=== PATIENT | male | born 1940 | race Caucasian/White ===

== ENCOUNTER 2019-06-19 08:47 | Inpatient (IN) ==
[2019-06-19 10:05] LABS: Appearance Urine Clear (Clear); Bacteria Urine Automated Negative (Negative); Bilirubin Urine Negative (Negative); Blood Urine Negative (Negative); Color Urine Yellow; Glucose Urine UA Negative (Negative); Ketones Urine Negative (Negative); Leukocyte Esterase Urine 1+ (Negative); Nitrite Urine Negative (Negative); Protein Urine Negative (Negative); RBC Urine Automated 0-4 /hpf (0-4); Specific Gravity Urine 1.016 (1.000-1.030); Urobilinogen Urine Negative (Negative)
[2019-06-19 10:18] LABS: Basophils # (auto) 0.03 K/uL (0-0.2); Basophils % (auto) 0.3 %; Eosinophils # (auto) 0.14 K/uL (0-0.5); Eosinophils % (auto) 1.5 %; Hematocrit (blood only) 34.3 % (42-52); Hemoglobin 11.5 g/dL (14.0-18.0); Immature Granulocytes # (auto) 0.06 K/uL (0.00-0.02); Immature Granulocytes % (auto) 0.7 %; Lymphocytes # (auto) 0.82 K/uL (1.2-3.4); Mean Corpuscular Hemoglobin 30.5 pg (25-34); Mean Corpuscular Hgb Conc 33.5 g/dL (32-36); Mean Platelet Volume 7.9 fL (7.4-10.4); Monocytes # (auto) 1.65 K/uL (0.11-0.59); Neutrophils # (auto) 6.46 K/uL (1.4-6.5); Neutrophils % (auto) 70.5 %; Platelet Count 340 K/uL (130-400); RDW Coefficient of Variation 13.3 % (11.5-14.5); RDW Standard Deviation 44.5 fL (36.4-46.3); Red Blood Count 3.77 M/uL (4.7-6.1); White Blood Count 9.16 K/uL (4.8-10.8)
[2019-06-19 11:05] LABS: Albumin Globulin Ratio 0.8 (0.9-2); Albumin Level 2.6 gm/dl (3.4-5.0); BUN Creatinine Ratio 12.3 (10-20); Bilirubin,Total 0.3 mg/dl (0.2-1); Calcium 9.6 mg/dl (8.5-10.1); Creatinine Clr Calc Pharmacy 9.3 ml/min; Globulin 3.4 gm/dl (2.5-4.0); Potassium 5.6 mmol/L (3.5-5.1)
[2019-06-19] MEDS ORDERED: SODIUM CHLORIDE 0.9% 1000ML 1,000 ML IV SCH (11:15)
--- NOTE | 2019-06-19 11:17 | Ultrasound Report ---
ULTRASOUND KIDNEYS AND BLADDER CLINICAL HISTORY: Urinary retention. COMPARISON STUDY: No priors. TECHNIQUE: Real-time, grayscale, and color flow sonography of the kidneys and bladder is performed. I mages are reviewed in the transverse and longitudinal planes. FINDINGS: Kidneys: The kidneys demonstrate cortical atrophy and are normal in echotexture. The right kidney edita sures 13.8 cm in length and the left kidney measures 14.2 cm in length. There is mild to moderate raul ateral hydroureteronephrosis. No shadowing renal calculi are identified. There is no sonographic evid ence of contour deforming renal mass lesion. No perinephric fluid is identified. Bladder: The bladder is decompressed and a Borrego catheter and could not be assessed. IMPRESSION: 1. The kidneys demonstrate cortical atrophy. 2. There is mild to moderate bilateral hydroureteronephrosis. 3. The bladder is decompressed around a Borrego catheter and could not be assessed. Electronically signed by: Kendall Hamilton M.D. 06/19/2019 11:15 AM
--- NOTE | 2019-06-19 12:16 | History & Physical Report ---
Date of Service June 19, 2019 Assessment & Plan (1) ANDREAS (acute kidney injury): Secondary to post renal obstruction. Consult nephrology. Add gentle IV fluids (2) Urinary retention: Borrego catheter inserted. Consult urology. (3) Bilateral hydronephrosis: Probably secondary to urinary retention. Add Flomax. (4) Hematuria: Further plan per urologist. Monitor labs and transfuse accordingly. Check UA/urine cultures. We will repeat labs in a.m. Add SCDs for DVT prophylaxis History of Present Illness Chief Complaint: Urinary retention Primary Care Provider: Jon Basurto The patient is 78 years old male who presented to the emergency room with complaints of urinary retention. Patient states that he is having decreased amount of urine for last 4 days. He denies any abdominal pain. No nausea vomi ting. In the emergency room Borrego catheter was inserted and around 2 L of urine obtained. Borrego's catheter also showed hematuria. The further work-up done in the ER shows that patient has bilateral hydronephrosis. He will be admitted for further evaluation and management. Blood labs show acute renal failure. Allergies Allergy/AdvReac Type Severity Reaction Status Date / Time minocycline Allergy Severe SEVERE LEG Unverified 06/19/19 09:18 RASH ketorolac [From Toradol] Allergy Mild GI ISSUES? Unverified 06/19/19 09:18 Home Medications Home Medications Medication Instructions Recorded Confirmed Type cholecalciferol (vitamin D3) 1,000 unit PO DAILY 06/19/19 06/19/19 History [Vitamin D3] vit C,O-Eu-nfjlm-lutein-zeaxan 1 tab PO AMHS 06/19/19 06/19/19 History [PreserVision AREDS-2] Past Med/Surg History Medical History No significant past medical history Family History Other Family history non-contributory Social History marital status: Current Living Situation: Spouse current occupational status: retired Feels Safe at Home: Yes Smoking Status: Former smoker Review of Systems Review of Systems: All systems reviewed & are unremarkable except as noted in HPI & below Physical Exam Physical Exam: GENERAL : No acute distress EYES: No icterus, gaze conjugate NOSE: No evidence of epistaxis MOUTH: No lesions or candidiasis, mucosa moist NECK: Supple LUNGS: CTA B/L, no wheezes, rales or rhonchi HEART: Regular, rate controlled ABDOMEN: Soft, NT, ND, BS Present EXTREMITIES: No LE edema, pedal pulses intact NEURO: A&OX3 Hematuria noted in the Borrego catheter Results & Data Vital Signs (Past 12 Hours) Vital Signs Temp Pulse Pulse Resp BP BP Pulse Ox 06/19/19 10:18 74 16 167/77 H 99 06/19/19 08:52 97.5 F L 90 20 180/83 H 96 Laboratory Results 06/19/19 10:09 06/19/19 10:09 Diagnostic Findings ULTRASOUND KIDNEYS AND BLADDER CLINICAL HISTORY: Urinary retention. COMPARISON STUDY: No priors. TECHNIQUE: Real-time, grayscale, and color flow sonography of the kidneys and bladder is performed. Images are reviewed in the transverse and longitudinal planes. FINDINGS: Kidneys: The kidneys demonstrate cortical atrophy and are normal in echotexture. The right kidney measures 13.8 cm in length and the left kidney measures 14.2 cm in length. There is mild to moderate bilateral hydroureteronephrosis. No shadowing renal calculi are identified. There is no sonographic evidence of contour deforming renal mass lesion. No perinephric fluid is identified. Bladder: The bladder is decompressed and a Borrego catheter and could not be assessed. IMPRESSION: 1. The kidneys demonstrate cortical atrophy. 2. There is mild to moderate bilateral hydroureteronephrosis. 3. The bladder is decompressed around a Borrego catheter and could not be assessed. Code Status & VTE Plan Code Status Full code VTE Prophylaxis Plan VTE Prophylaxis will be ordered: Yes PG Care Time/CCT Total # of Minutes Spent Total Time Spent with Patient: Total time spent is greater than 50% in coordination of care (as documented) at patient's floor/unit and/or counseling patient: 60 m
[2019-06-19] MEDS ORDERED: ACETAMINOPHEN 325 MG TAB PO PRN (13:03)
[2019-06-19] MEDS ORDERED: ZOLPIDEM TARTRATE 5 MG TAB PO PRN (13:03)
[2019-06-19] MEDS ORDERED: ONDANSETRON INJ 2 MG/ML 2 ML VIAL IV PRN (13:03)
[2019-06-19] MEDS ORDERED: POLYETHYLENE (MIRALAX) 17 GM PACK PO PRN (13:03)
[2019-06-19] MEDS ORDERED: ALUMINUM/MAGNESIUM SUSP 30 ML UDC PO PRN (13:03)
[2019-06-19] MEDS ORDERED: MAGNESIUM HYDROXIDE SUSP 30 ML UDC PO PRN (13:03)
[2019-06-19] MEDS: SODIUM CHLORIDE 0.9% 1000ML 1,000 ML IV SCH ×2 (13:20→21:38)
--- NOTE | 2019-06-19 14:39 | Emergency Department Note ---
Entered by Malini Ocasio acting as a scribe for Claudia Rutherford MD History of Present Illness General Chief complaint: Unable to Void Stated complaint: TROUBLE URINATING Source: patient and family () History of Present Illness Onset (ago): week(s) 2 Location: pelvis Pain Consistency: + other (persistent) Maximum Pain Intensity: 0 Quality: + other (inability to urinate) Associated symptoms: + denies other symptoms (abdominal pain, fever, vomiting, diarrhea, dysuria, changes in bowel movements, changes in fluid intake) and + other (lower abdominal pressure, pitting edema in bilateral lower extremities) The patient is a 78 year old male that is presenting to the Emergency Room with complaints of persistent inability to urinate for around 2 weeks. The patient reports that he is only able to urinate a small amount intermittently. He states that he has some lower abdominal pressure but denies any true abdominal pain. He denies any dysuria. He denies any prior past episodes. He notes that he is having normal bowel movements. He denies any fever, vomiting, or diarrhea. He denies any changes in fluid intake. The patient reports that he started having some pitting edema in his bilateral lower extremities that started last night. His notes that the patient has an appointment with his PCP, Dr. Basurto, in [place] tomorrow but states that she decided he should come to the hospital due to the new onset edema. The patient denies being followed by a urologist. Home Medications Home Medications Medication Instructions Recorded Confirmed Type cholecalciferol (vitamin D3) 1,000 unit PO DAILY 06/19/19 06/19/19 History [Vitamin D3] vit C,R-Nd-dcwxn-lutein-zeaxan 1 tab PO AMHS 06/19/19 06/19/19 History [PreserVision AREDS-2] Allergies Allergy/AdvReac Type Severity Reaction Status Date / Time minocycline Allergy Severe SEVERE LEG Unverified 06/19/19 09:18 RASH ketorolac [From Toradol] Allergy Mild GI ISSUES? Unverified 06/19/19 09:18 Past Med/Surg History Medical History No significant past medical history Family History Other Family history non-contributory Social History Preferred Language: [place] [employer] Required: No Beliefs That Will Affect Care: None marital status: Current Living Situation: Spouse current occupational status: retired Feels Safe at Home: Yes Smoking Status: Former smoker Hx Substance Use: No Review of Systems See HPI for pertinent positives & negatives. and A total of 10 systems reviewed and were otherwise negative Physical Exam Vital Signs Vital Signs - 24 hr 06/19/19 08:52 06/19/19 10:18 Temperature 36.4 C L Temperature Source Oral Sepsis Recent Fever Within 48 Hours No Sepsis Action Taken by Nursing No Action Required Pulse Rate 90 Pulse Rate [Finger] 74 Pulse Rhythm Regular Pulse Strength Normal Respiratory Rate 20 16 Respiratory Effort / Characteristics Non-Labored Spontaneous Respiratory Depth Normal Respiratory Pattern Regular Blood Pressure 180/83 H Blood Pressure [Right Arm] 167/77 H Blood Pressure Mean 115 Blood Pressure Mean [Right Arm] 107 Blood Pressure Position Sitting Pulse Oximetry 96 99 Oxygen Delivery Method Room Air Room Air Vital signs reviewed. General: Well-appearing male, in no significant distress. HEENT: No scleral icterus, PERRLA, neck supple. Atraumatic. Cardiovascular: Regular rate and rhythm, no extra sounds. Pulmonary: Clear to auscultation bilaterally, normal work of breathing. Abdomen: Soft, positive bowel sounds. Moderate distension of the lower abdomen without rebound or guarding. No specific tenderness. Musculoskeletal: Atraumatic, no peripheral edema. Neurologic: Patient awake alert and oriented x 3 Skin: Warm, dry, no rash Course 0912:The patient was evaluated in room B05. A complete history and physical examination was performed. 0937: 1000ccs of urine on bladder scan. 0950: 2700ccs of urine have been drained as of this time. 1105: I updated the patient on his current lab results. 1138: Upon reevaluation, the patient is resting comfortably. I discussed laboratory and radiographic results with the patient. He verbalized agreement of the treatment plan. The patient will be evaluated for further management and care. 1148: I discussed the patients case with Dr. Bosch, [facility], who will evaluate the patient for further management and care. Administered Medications Finasteride (Proscar) 5 mg PO QAM [facility] Stop: 07/21/19 08:59 Last Admin: 06/22/19 07:46 Dose: 5 mg Documented by: [id number] Admin: 06/21/19 07:50 Dose: 5 mg Documented by: [id number] Tamsulosin HCl (Flomax) 0.4 mg PO HS GREGG Stop: 07/19/19 20:59 Last Admin: 06/21/19 21:03 Dose: 0.4 mg Documented by: [id number] Admin: 06/20/19 20:15 Dose: 0.4 mg Documented by: [id number] Admin: 06/19/19 21:38 Dose: 0.4 mg Documented by: [id number] Discontinued Medications Sodium Chloride (Nss 1000ml) 1,000 mls @ 125 mls/hr IV .Q8H GREGG Stop: 07/19/19 11:14 Last Infusion: 06/19/19 13:20 Dose: 0 mls/hr Documented by: [id number] Admin: 06/19/19 11:43 Dose: 125 mls/hr Documented by: [id number] Sodium Chloride (Nss 1000ml) 1,000 mls @ 100 mls/hr IV .Q10H GREGG Stop: 07/19/19 13:19 Last Infusion: 06/21/19 11:22 Dose: 0 mls/hr Documented by: [id number] Admin: 06/21/19 05:11 Dose: 100 mls/hr Documented by: [id number] Infusion: 06/21/19 04:50 Dose: 100 mls/hr Documented by: [id number] Admin: 06/20/19 18:50 Dose: 100 mls/hr Documented by: [id number] Infusion: 06/20/19 18:25 Dose: 100 mls/hr Documented by: [id number] Admin: 06/20/19 08:25 Dose: 100 mls/hr Documented by: [id number] Cosigned by: [id number] Infusion: 06/20/19 07:38 Dose: 100 mls/hr Documented by: [id number] Cosigned by: [id number] Admin: 06/19/19 21:38 Dose: 100 mls/hr Documented by: [id number] Infusion: 06/19/19 21:38 Dose: 100 mls/hr Documented by: [id number] Admin: 06/19/19 13:20 Dose: 100 mls/hr Documented by: [id number] Medical Decision Making Differential Diagnosis Differential diagnosis: Etiologies such as prostatic hypertrophy, mass, tumor, kidney stone, renal failure, infection as well as others were entertained. Medical Records Attestation: I reviewed the patient's medical records. Home Medications Current Medication List: was personally reviewed by me Laboratory Data Attestation: I reviewed the patient's lab results. Result diagrams: 06/21/19 07:39 06/22/19 06:01 Lab Results 06/19/19 06/19/19 06/19/19 Range/Units 09:45 10:09 10:09 WBC 9.16 (4.8-10.8) K/uL RBC 3.77 L (4.7-6.1) M/uL Hgb 11.5 L (14.0-18.0) g/dL Hct 34.3 L (42-52) % MCV 91.0 (80-100) fL MCH 30.5 (25-34) pg MCHC 33.5 (32-36) g/dL RDW Std Deviation 44.5 (36.4-46.3) fL RDW Coeff of Jeronimo 13.3 (11.5-14.5) % Plt Count 340 (130-400) K/uL MPV 7.9 (7.4-10.4) fL Immature Gran % (Auto) 0.7 % Neut % (Auto) 70.5 % Lymph % (Auto) 9.0 % [place] % (Auto) 18.0 % Eos % (Auto) 1.5 % Baso % (Auto) 0.3 % Immature Gran # (Auto) 0.06 H (0.00-0.02) K/uL Neut # (Auto) 6.46 (1.4-6.5) K/uL Lymph # (Auto) 0.82 L (1.2-3.4) K/uL [place] # (Auto) 1.65 H (0.11-0.59) K/uL Eos # (Auto) 0.14 (0-0.5) K/uL Baso # (Auto) 0.03 (0-0.2) K/uL Sodium 139 (136-145) mmol/L Potassium 5.6 H (3.5-5.1) mmol/L Chloride 109 H (98-107) mmol/L Carbon Dioxide 20 L (21-32) mmol/L Anion Gap 10.0 (3-11) BUN 96 H (7-18) mg/dl Creatinine 7.79 H* (0.6-1.4) mg/dl Est Cr Clr Drug Dosing 9.3 ml/min Est GFR ( Amer) 7.0 Est GFR (Non-Af Amer) 6.0 BUN/Creatinine Ratio 12.3 (10-20) Glucose 109 H (70-99) mg/dl Calcium 9.6 (8.5-10.1) mg/dl Total Bilirubin 0.3 (0.2-1) mg/dl AST 20 (15-37) U/L ALT 34 (12-78) U/L Alkaline Phosphatase 62 (45-117) U/L Total Protein 6.0 L (6.4-8.2) gm/dl Albumin 2.6 L (3.4-5.0) gm/dl Globulin 3.4 (2.5-4.0) gm/dl Albumin/Globulin Ratio 0.8 L (0.9-2) Urine Color Yellow Urine Appearance Clear (Clear) Urine pH 5.0 (4.5-7.5) Ur Specific [place] 1.016 (1.000-1.030) Urine Protein Negative (Negative) Urine Glucose (UA) Negative (Negative) Urine Ketones Negative (Negative) Urine Blood Negative (Negative) Urine Nitrite Negative (Negative) Urine Bilirubin Negative (Negative) Urine Urobilinogen Negative (Negative) Ur Leukocyte Esterase 1+ H (Negative) Urine WBC (Auto) 1-5 (0-5) /hpf Urine RBC (Auto) 0-4 (0-4) /hpf U Hyaline Cast (Auto) 1-5 (0-5) /lpf U Epithel Cells (Auto) 10-20 H (0-5) /lpf Urine Bacteria (Auto) Negative (Negative) Imaging Data Radiologist's Impression: Radiology results as stated below per my review and the radiologist's interpretation: ULTRASOUND KIDNEYS AND BLADDER CLINICAL HISTORY: Urinary retention. COMPARISON STUDY: No priors. TECHNIQUE: Real-time, grayscale, and color flow sonography of the kidneys and bladder is performed. Images are reviewed in the transverse and longitudinal planes. FINDINGS: Kidneys: The kidneys demonstrate cortical atrophy and are normal in echotexture. The right kidney measures 13.8 cm in length and the left kidney measures 14.2 cm in length. There is mild to moderate bilateral hydroureteronephrosis. No shadowing renal calculi are identified. There is no sonographic evidence of co ntour deforming renal mass lesion. No perinephric fluid is identified. Bladder: The bladder is decompressed and a Borrego catheter and could not be assessed. IMPRESSION: 1. The kidneys demonstrate cortical atrophy. 2. There is mild to moderate bilateral hydroureteronephrosis. 3. The bladder is decompressed around a Borrego catheter and could not be assessed. Electronically signed by: Kendall Hamilton M.D. 06/19/2019 11:15 AM Blood Pressure Blood Pressure Findings: Elevated blood pressure Blood Pressure Disposition: Referred to patients primary care provider MDM Narrative This pt was evaluated and appeared to be in no distress. Bladder scan was obtained and significant volume >1L was seen. Borrego cath was placed and greater than 2700ml urine drained. IV access was obtained and lab work was drawn. Pt was hydrated with NSS. Creatinine was 7.79 with K 5.6. Renal US was performed and is as above, with bilateral hydronephrosis. Pt was advised of the findings and agrees with plan for hospitalization. Case was d/w the hospitalist for further management. Impression & Plan ANDREAS (acute kidney injury), Urinary retention Discharge Plan Visit Data *Final* Discharge Date/Time: 06/19/19 12:45 Chief Complaint: Unable to Void Stated Complaint: TROUBLE URINATING ED Provider: Claudia Rutherford Discharge Problem: ANDREAS (acute kidney injury), Urinary retention Patient Disposition: Admitted As Inpatient Discharge Instructions Interventions: ED Discharge Assessment Last Done: 06/19/19 12:45 The scribe's documentation has been prepared under my direction and personally reviewed by me in its entirety. I confirm that the note above accurately reflects all work, treatment, procedures, and medical decision making performed by me.
[2019-06-19 17:14] LABS: Basophils # (auto) 0.03 K/uL (0-0.2); Basophils % (auto) 0.3 %; Eosinophils # (auto) 0.22 K/uL (0-0.5); Eosinophils % (auto) 2.5 %; Hemoglobin 12.3 g/dL (14.0-18.0); Immature Granulocytes # (auto) 0.05 K/uL (0.00-0.02); Immature Granulocytes % (auto) 0.6 %; Lymphocytes # (auto) 1.14 K/uL (1.2-3.4); Lymphocytes % (auto) 12.8 %; Mean Corpuscular Hemoglobin 31.4 pg (25-34); Mean Corpuscular Hgb Conc 35.1 g/dL (32-36); Mean Corpuscular Volume 89.3 fL (80-100); Mean Platelet Volume 7.7 fL (7.4-10.4); Monocytes # (auto) 1.53 K/uL (0.11-0.59); Monocytes % (auto) 17.2 %; Neutrophils # (auto) 5.93 K/uL (1.4-6.5); Neutrophils % (auto) 66.6 %; Platelet Count 361 K/uL (130-400); RDW Coefficient of Variation 13.3 % (11.5-14.5); RDW Standard Deviation 43.5 fL (36.4-46.3); Red Blood Count 3.92 M/uL (4.7-6.1)
[2019-06-19 17:44] LABS: BUN Creatinine Ratio 15.3 (10-20); Calcium 9.3 mg/dl (8.5-10.1); Creatinine Clr Calc Pharmacy 15.6 ml/min; Est GFR (Non-African American) 11.2; Potassium 5.3 mmol/L (3.5-5.1)
--- NOTE | 2019-06-19 19:59 | Urology Consultation ---
Date of Consultation June 19, 2019 Assessment & Plan (1) Bilateral hydronephrosis: Discussed findings at length with patient. Had significant ANDREAS. Has now tolerated catheter with good drainage. Patient likely has significant BPH/BPE issues. Will need further work-up. We will also need full work-up of hematuria. Discussed possible causes of hematuria as well as possible other causes of obstruction. Patient has been increasing activity. Is trying to hydrate better. Also discussed other options. Discussed management of bowels. And discussed work-up in the future after this acute episode. Discussed clearing of hematuria over time. Had one episode with clot retention since catheter was placed. That was easily irrigated. Discussed other options. We will continue to follow closely. Will need outpatient work-up and follow-up. We will continue to monitor closely. Will await resolution of ANDREAS. Continue with hydration. (2) ANDREAS (acute kidney injury): (3) Urinary retention: (4) Hematuria: History of Present Illness Attending Physician: Herson oBsch MD History of Present Illness Patient with approximately 2 weeks of issues voiding. Has become worsening of issues. Had previously had lower urinary tract symptoms but had always been able to void fairly well. Has become acutely worse. Was seen in the ER. Is a patient coming from [place]. Was found to be in acute urinary retention. Was then admitted for hydration due to his significant ANDREAS. Patient is tolerating catheter. Has put out a decent amount of urine since catheter placement. Has never had work-up. Does have blood in the urine. Is concerned about possible UTI. On imaging patient was found to have bilateral hydronephrosis. This is likely secondary to likely chronic retention/incomplete emptying Allergies Allergy/AdvReac Type Severity Reaction Status Date / Time minocycline Allergy Severe SEVERE LEG Unverified 06/19/19 09:18 RASH ketorolac [From Toradol] Allergy Mild GI ISSUES? Unverified 06/19/19 09:18 Home Medications Home Medications Medication Instructions Recorded Confirmed Type cholecalciferol (vitamin D3) 1,000 unit PO DAILY 06/19/19 06/19/19 History [Vitamin D3] vit C,W-Yo-llesq-lutein-zeaxan 1 tab PO AMHS 06/19/19 06/19/19 History [PreserVision AREDS-2] Patient History Medical History No significant past medical history Family History Other Family history non-contributory Social History Preferred Language: [place] [employer] Agent Required: No Beliefs That Will Affect Care: None marital status: Current Living Situation: Spouse current occupational status: retired Feels Safe at Home: Yes Smoking Status: Former smoker Hx Substance Use: No Review of Systems Review of Systems: All systems reviewed & are unremarkable except as noted in HPI & below Physical Exam Physical Exam: General: Alert and oriented x 3 in no acute distress. Patient is well nourished and well kept. HEENT: Normocephalic Atraumatic. Inspection normal. Cranial Nerves 2-12 Grossly intact. Nares are clear. Neck is supple. Normal inspection of face. Normal inspection of neck. Neurologic: No deficits on inspection. Baseline for motor function and sensory. Psychologic: Normal affect. Respiratory: Nonlabored. No use of accessory muscles. No tachypnea or dyspnea. Cardiovascular: No tachycardia Skin: [place] and Dry. No rashes or visible lesions. Extremities: Moving without issues. No motor deficits on inspection Lymphatics: No edema Abdomen: Soft Non-distended. No acites. No rebound or guarding. : Borrego in place draining urine. Results & Data Vital Signs (Past 12 Hours) Vital Signs Temp Pulse Pulse Resp BP BP Pulse Ox 06/19/19 15:18 37.1 C 80 18 166/55 H 98 06/19/19 15:06 36.6 C 80 18 179/80 H 98 06/19/19 12:37 74 16 159/72 H 99 06/19/19 10:18 74 16 167/77 H 99 06/19/19 08:52 36.4 C L 90 20 180/83 H 96 PG Care Time/CCT Total # of Minutes Spent Total Time Spent with Patient: Total time spent is greater than 50% in coordinat ion of care (as documented) at patient's floor/unit and/or counseling patient:
[2019-06-19] MEDS: TAMSULOSIN HCL 0.4 MG CAP PO SCH (21:38)
[2019-06-20 05:46] LABS: Hematocrit (blood only) 32.2 % (42-52); Mean Corpuscular Hemoglobin 31.1 pg (25-34); Mean Corpuscular Hgb Conc 34.2 g/dL (32-36); Mean Platelet Volume 7.8 fL (7.4-10.4); Platelet Count 353 K/uL (130-400); RDW Coefficient of Variation 13.2 % (11.5-14.5); RDW Standard Deviation 44.2 fL (36.4-46.3); Red Blood Count 3.54 M/uL (4.7-6.1)
[2019-06-20 06:25] LABS: Alanine Aminotransferase 30 U/L (12-78); Albumin Globulin Ratio 0.7 (0.9-2); Albumin Level 2.3 gm/dl (3.4-5.0); Alkaline Phosphatase 61 U/L (45-117); Aspartate Aminotransferase 18 U/L (15-37); BUN Creatinine Ratio 21.2 (10-20); Bilirubin Direct < 0.1 mg/dl (0-0.2); Bilirubin,Total 0.6 mg/dl (0.2-1); Blood Urea Nitrogen 47 mg/dl (7-18); Calcium 8.8 mg/dl (8.5-10.1); Carbon Dioxide 22 mmol/L (21-32); Chloride 114 mmol/L (98-107); Creatinine Clr Calc Pharmacy 32.8 ml/min; Est GFR (African American) 32.1; Est GFR (Non-African American) 27.7; Globulin 3.3 gm/dl (2.5-4.0); Glucose 92 mg/dl (70-99); Magnesium 1.8 mg/dl (1.8-2.4); Potassium 5.2 mmol/L (3.5-5.1); Sodium 143 mmol/L (136-145); Total Protein 5.6 gm/dl (6.4-8.2)
[2019-06-20] MEDS: SODIUM CHLORIDE 0.9% 1000ML 1,000 ML IV SCH ×2 (08:25→18:50)
--- NOTE | 2019-06-20 10:53 | Urology Progress Note ---
Date of Service June 20, 2019 Assessment & Plan (1) Hematuria: (2) Bilateral hydronephrosis: 78yo M with ANDREAS, UR, hematuria. Long discussion with family regarding potential causes, expected clinical course of post-renal failure; Bilateral hydro. Drastic improvement in kidney function w ith max drainage however hematuria persists, maroon with small clots. BP and h/h stabilizing 16fr in place- okay to convert to at least 20fr hematuria catheter if needed for irrigation. Order placed. Okay to continue PRN hand irrigation for clots. Continue gann catheter for now to continue max drainage. Continue flomax, will add finasteride. Medications revied with pt and family. Pt and family members agreeable to plan of care. Pt requesting ambulation in halls, I encouraged him to do so with nursing help. Will continue to monitor closely, no need for acute intervention at this time . Subjective 78yo M with ANDREAS, UR, and hematuria. Pt is alert and oriented, tolerating catheter well. Gann draining maroon to light pink colored urine with mild clots. Per patient, he has not required hand irrigation lately. Labs reviewed - Cr markedly improved since admission. VSS, afebrile. UA not suspicious for UTI, however UC&S not obtained. Review of Systems Review of Systems: All systems reviewed & are unremarkable except as noted in HPI & below Physical Exam Constitutional: no acute distress and not ill appearing Eyes: no nystagmus ENMT: Ears: no hearing impairment Neck: trachea midline Respiratory: no respiratory distress and no cough Cardiovascular: Vessels: no JVD Chest (Breasts): Chest: normal inspection of chest Gastrointestinal (Abdomen): Inspection/Auscultation: abdomen not distended and no abdominal edema Percussion/Palpation: abdomen soft; abdomen nontender Musculoskeletal: Head/Neck/Chest: normocephalic and head atraumatic Skin: no rashes, warm and dry Neurologic: awake; not confused and not obtunded Psychiatric: Orientation: alert and oriented x 3 Eye Contact: good eye contact Affect: no depressed affect Genitourinary: no CVA tenderness gann draining maroon to light pink with mild clots. 16fr catheter. Lymphatic: no lymphadenopathy and no lymphedema Results & Data Vital Signs (Past 12 Hours) Vital Signs Temp Pulse Pulse Resp BP BP Pulse Ox 06/20/19 04:48 37.1 C 80 18 146/74 H 96 06/20/19 00:00 37.1 C 79 18 123/59 L 96 06/19/19 23:00 70 PG Care Time/CCT Total # of Minutes Spent Total Time Spent with Patient: Total time spent is greater than 50% in coordination of care (as documented) at patient's floor/unit and/or counseling patient:
[2019-06-20 15:21] LABS: Calcium 8.9 mg/dl (8.5-10.1); Creatinine Clr Calc Pharmacy 40.2 ml/min; Est GFR (African American) 43.2; Est GFR (Non-African American) 37.3; Potassium 4.9 mmol/L (3.5-5.1)
--- NOTE | 2019-06-20 16:36 | Hospitalist Progress Note ---
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, now down to 1.73 after Borrego placed and given IVFs Borrego initially drained 2L urine out No h/o prostate or bladder issues previously UA does not appear infected and no urine culture was sent -continue Borrego catheter as below treating for urine retention -continue to follow renal function -no need for Nephrology consultation as rapid improvement and no need for urgent HD -changed to low K+ diet -continue IVFs -follow I/Os (2) Urinary retention: Borrego catheter inserted and 2L drained initially Now with gross hematuria-could be trauma during catheterization but needs workup for hematuria as outpt -Consult urology appreciated -continue hand irrigation as needed and can exchange catheter to 20 Fr if needed -started FLomax and finasteride (3) Bilateral hydronephrosis: Secondary to urinary retention. Treatment as above (4) Hematuria: Further plan per urologist. Monitor labs and transfuse accordingly. No evidence of infection on UA, Ur cx not sent Follow CBC, mild anemia with hgb 11 irrigate prn (5) Hyperkalemia: K+ elevated on admission due to acute renal failure and now improved down to 4.9 -change ot low K+ diet -follow BMP in AM (6) DVT prophylaxis: SCDs Dispo-continued stay on med w/ tele to monitor for continued improvement in ANDREAS and for gross hematuria Hopeful to dc to home in the next 1-2 days Subjective Pt feeling well today. Denies any abd pain. He is moving his bowel sand making urine in the Borrego bag. Denies lightheadedness, no CP or SOB, no nausea. He is hermann po. Still having some blood in urine which he did not have prior to his catheterization. Tele with NSR, rates 70s-80s Review of Systems Review of Systems: All systems reviewed & are unremarkable except as noted in HPI & below Physical Exam Constitutional: WD/WN, vitals as above Eyes: + anicteric sclerae ENMT: external ear and nose normal, oropharynx normal Neck: trachea midline, no thyromegaly Respiratory: normal respiratory effort, lungs clear to auscultation Cardiovascular: RRR, no murmur, no edema Gastrointestinal (Abdomen): normal bowel sounds, soft, nontender, no hepatosplenomegaly Musculoskeletal: Extremities: extremities normal to inspection; no cyanosis and no clubbing Skin: no rashes, warm and dry Neurologic: moves all extremities and awake; no focal motor deficits Psychiatric: A+Ox3, euthymic affect Genitourinary: Borrego bag with valdez red urine Results & Data Vital Signs (Past 12 Hours) Vital Signs Temp Pulse Resp BP Pulse Ox 06/20/19 15:29 36.9 C 76 24 135/70 95 06/20/19 12:38 36.9 C 79 20 118/73 95 06/20/19 04:48 36.8 C 91 H 18 124/65 96 Laboratory Results 06/20/19 06/20/19 06/20/19 Range/Units 14:55 05:31 05:31 WBC 9.80 (4.8-10.8) K/uL RBC 3.54 L (4.7-6.1) M/uL Hgb 11.0 L (14.0-18.0) g/dL Hct 32.2 L (42-52) % MCV 91.0 (80-100) fL MCH 31.1 (25-34) pg MCHC 34.2 (32-36) g/dL RDW Std Deviation 44.2 (36.4-46.3) fL RDW Coeff of Jeronimo 13.2 (11.5-14.5) % Plt Count 353 (130-400) K/uL MPV 7.8 (7.4-10.4) fL Sodium 144 143 (136-145) mmol/L Potassium 4.9 5.2 H (3.5-5.1) mmol/L Chloride 115 H 114 H (98-107) mmol/L Carbon Dioxide 24 22 (21-32) mmol/L Anion Gap 5.0 7.0 (3-11) BUN 38 H 47 H (7-18) mg/dl Creatinine 1.73 H D 2.21 H D (0.6-1.4) mg/dl Est Cr Clr Drug Dosing 40.2 32.8 ml/min Est GFR ( Amer) 43.2 32.1 Est GFR (Non-Af Amer) 37.3 27.7 BUN/Creatinine Ratio 22.0 H 21.2 H (10-20) Glucose 117 H 92 (70-99) mg/dl Calcium 8.9 8.8 (8.5-10.1) mg/dl Magnesium 1.8 (1.8-2.4) mg/dl Total Bilirubin 0.6 (0.2-1) mg/dl Direct Bilirubin < 0.1 (0-0.2) mg/dl AST 18 (15-37) U/L ALT 30 (12-78) U/L Alkaline Phosphatase 61 (45-117) U/L Total Protein 5.6 L (6.4-8.2) gm/dl Albumin 2.3 L (3.4-5.0) gm/dl Globulin 3.3 (2.5-4.0) gm/dl Albumin/Globulin Ratio 0.7 L (0.9-2) PG Care Time/CCT Total # of Minutes Spent Total Time Spent with Patient: Total time spent is greater than 50% in coordination of care (as documented) at patient's floor/unit and/or counseling patient:
[2019-06-20] MEDS: TAMSULOSIN HCL 0.4 MG CAP PO SCH (20:15)
[2019-06-21] MEDS: SODIUM CHLORIDE 0.9% 1000ML 1,000 ML IV SCH (05:11)
[2019-06-21] MEDS: FINASTERIDE 5 MG TAB PO SCH (07:50)
[2019-06-21 08:00] LABS: Basophils # (auto) 0.04 K/uL (0-0.2); Basophils % (auto) 0.5 %; Eosinophils % (auto) 3.5 %; Hematocrit (blood only) 32.8 % (42-52); Hemoglobin 10.7 g/dL (14.0-18.0); Immature Granulocytes # (auto) 0.06 K/uL (0.00-0.02); Immature Granulocytes % (auto) 0.7 %; Lymphocytes # (auto) 1.51 K/uL (1.2-3.4); Lymphocytes % (auto) 17.4 %; Mean Corpuscular Hemoglobin 30.4 pg (25-34); Mean Corpuscular Hgb Conc 32.6 g/dL (32-36); Mean Corpuscular Volume 93.2 fL (80-100); Monocytes # (auto) 1.41 K/uL (0.11-0.59); Monocytes % (auto) 16.2 %; Neutrophils # (auto) 5.37 K/uL (1.4-6.5); Neutrophils % (auto) 61.7 %; Platelet Count 328 K/uL (130-400); RDW Coefficient of Variation 13.3 % (11.5-14.5); RDW Standard Deviation 45.3 fL (36.4-46.3); Red Blood Count 3.52 M/uL (4.7-6.1); White Blood Count 8.69 K/uL (4.8-10.8)
[2019-06-21 08:28] LABS: BUN Creatinine Ratio 20.2 (10-20); Calcium 8.9 mg/dl (8.5-10.1); Creatinine Clr Calc Pharmacy 56.4 ml/min; Est GFR (African American) 65.2; Est GFR (Non-African American) 56.3; Potassium 4.9 mmol/L (3.5-5.1)
--- NOTE | 2019-06-21 11:24 | Hospitalist Progress Note ---
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 hydration -follow I/Os (2) Urinary retention: Borrego catheter inserted and 2L drained initially in the ER Now with gross hematuria-could be trauma during catheterization and urology also thinks from extreme distention of bladder causing bleeding-but needs workup for hematuria as outpt to include cystoscopy and likely CT renal protocol -Consult urology appreciated -continue hand irrigation as needed and can exchange catheter to 20 Fr if needed -started FLomax and finasteride (3) Bilateral hydronephrosis: Secondary to urinary retention. Treatment as above (4) Hematuria: Further plan per urologist as above likely secondary to significant bladder distention and possible Borrego trauma. Monitor labs and transfuse accordingly but no transfusion needed at this point. No evidence of infection on UA, Ur cx pending Follow CBC, mild anemia with hgb 10.7 -Continue to follow clinically here irrigate prn (5) Hyperkalemia: K+ elevated on admission due to acute renal failure and now improved down to 4.9 -Continue low K+ diet -follow BMP in AM (6) DVT prophylaxis: SCDs Dispo-continued stay on med w/ tele to monitor for continued improvement in ANDREAS and for gross hematuria Hopeful to dc to home in the next 1-2 days He is ambulating the hallways independently and does not need any rehab placement Subjective Patient feeling well, is ambulating the halls without lightheadedness. No chest pain shortness of breath. He still has blood in the urine but no clots. He apparently had to have it irrigated one time last night but there was no definite clot noted. I discussed the case with urology today. Discussed the case with his at the bedside extensively. Patient is otherwise doing well, making a lot of urine. Telemetry with normal sinus rhythm, sinus bradycardia with rates in the 50s to 80s. Review of Systems Review of Systems: All systems reviewed & are unremarkable except as noted in HPI & below Physical Exam Constitutional: WD/WN, vitals as above Eyes: + anicteric sclerae ENMT: external ear and nose normal, oropharynx normal Neck: trachea midline, no thyromegaly Respiratory: normal respiratory effort, lungs clear to auscultation Cardiovascular: RRR, no murmur, no edema Gastrointestinal (Abdomen): normal bowel sounds, soft, nontender, no hepatosplenomegaly Musculoskeletal: Extremities: extremities normal to inspection; no cyanosis and no clubbing Skin: no rashes, warm and dry Neurologic: moves all extremities and awake; no focal motor deficits Psychiatric: A+Ox3, euthymic affect Genitourinary: Borrego catheter in place draining valdez red urine, no clots Results & Data Vital Signs (Past 12 Hours) Vital Signs Temp Pulse Pulse Resp BP Pulse Ox 06/21/19 09:28 59 L 06/21/19 08:00 36.7 C 72 18 131/73 95 06/21/19 04:00 36.7 C 76 20 152/73 H 97 06/21/19 00:39 37.0 C 80 20 136/70 97 Laboratory Results Labs reviewed Creatinine down to 1.23, potassium 4.9 Urine culture pending Hemoglobin 10.7 PG Care Time/CCT Total # of Minutes Spent Total Time Spent with Patient: Total time spent is greater than 50% in coordination of care (as documented) at patient's floor/unit and/or counseling patient:
--- NOTE | 2019-06-21 12:43 | Urology Progress Note ---
Date of Service June 21, 2019 Assessment & Plan (1) Hematuria: 78yo M with AUR, ANDREAS, hematuria. Sotelo red hematuria persists however pt is doing well, denies any bladder pain or discomfort. Discussed with Dr. Pike, likely due to severity of AUR (>2L retained) and will improve overtime. H/H stable. Prelim UC&S with no growth. Continue tamsulosin and finasteride as outpatient. Plan for TOV in 1-2 week as outpatient, followed by outpatient cystoscopy and formal hematuria workup. Will continue to monitor while inpatient. Likely okay to discharge home tomorrow from [facility]. Subjective 78yo M with ANDREAS, UR, and hematuria. Pt is doing well, subjectively improved drastically Denies pain/n/v/f/c. tolerating catheter well, denies suprapubic pain Gann draining sotelo colored urine. Per nursing pt was irrigated x1 last evening, however pt states it never stopped working. Review of Systems Review of Systems: All systems reviewed & are unremarkable except as noted in HPI & below Physical Exam Constitutional: no acute distress and not ill appearing Eyes: no nystagmus ENMT: Ears: no hearing impairment Neck: trachea midline Respiratory: no respiratory distress and no cough Cardiovascular: Vessels: no JVD Chest (Breasts): Chest: normal inspection of chest Gastrointestinal (Abdomen): Inspection/Auscultation: abdomen not distended and no abdominal edema Percussion/Palpation: abdomen soft; abdomen nontender Musculoskeletal: Head/Neck/Chest: normocephalic and head atraumatic Skin: no rashes, warm and dry Neurologic: awake; not confused and not obtunded Psychiatric: Orientation: alert and oriented x 3 Eye Contact: good eye contact Affect: no depressed affect Genitourinary: bladder normal to inspection; no CVA tenderness gann draining sotelo colored urine, scant clots Lymphatic: no lymphadenopathy and no lymphedema Results & Data Vital Signs (Past 12 Hours) Vital Signs Temp Pulse Pulse Resp BP Pulse Ox 06/21/19 11:40 36.7 C 70 18 134/71 97 06/21/19 09:28 59 L 06/21/19 08:00 36.7 C 72 18 131/73 95 06/21/19 04:00 36.7 C 76 20 152/73 H 97 PG Care Time/CCT Total # of Minutes Spent Total Time Spent with Patient: Total time spent is greater than 50% in coordination of care (as documented) at patient's floor/unit and/or counseling patient:
[2019-06-21] MEDS: TAMSULOSIN HCL 0.4 MG CAP PO SCH (21:03)
[2019-06-22 06:58] LABS: BUN Creatinine Ratio 18.2 (10-20); Calcium 9.2 mg/dl (8.5-10.1); Creatinine Clr Calc Pharmacy 64.8 ml/min; Est GFR (African American) 77.2; Est GFR (Non-African American) 66.6; Potassium 4.3 mmol/L (3.5-5.1)
[2019-06-22] MEDS: FINASTERIDE 5 MG TAB PO SCH (07:46)
--- NOTE | 2019-06-22 10:35 | Urology Progress Note ---
Date of Service June 22, 2019 Assessment & Plan (1) Hematuria: 78yo M with AUR, ANDREAS, hematuria. Cr continues to improved. Irrigated due to clot, 750cc urine drained immediately. Pt had minimal bladder sensation. Will order qshift irrigation to prevent blockage. Pt instructed to watch for gann drainage and to alert nursing staff if no output in 1-2 hours. Will consult case management to discuss potential for his to irrigate catheter at home vs home nursing. Continue tamsulosin and finasteride. Long discussion with last evening, she is very concerned about patient's discharge plans. Wishes for us to keep him inpatient until Thursday due to family logistics. Plan for TOV in 1-2 week as outpatient, followed by outpatient cystoscopy and formal hematuria workup. Will continue to follow while inpatient. Subjective 78yo M with ANDREAS, UR, and hematuria. Pt continues to progress well Denies pain/n/v/f/c. Tolerating catheter well, denies suprapubic pain Gann irrigated personally with 500cc sterile water. Pt was clotted, easily irrigated free. Mild amount of clot removed. approx 750cc urine drained after clot irrigated - pt denies any discomfort with this. Review of Systems Review of Systems: All systems reviewed & are unremarkable except as noted in HPI & below Physical Exam Constitutional: no acute distress and not ill appearing Eyes: no nystagmus ENMT: Ears: no hearing impairment Neck: trachea midline Respiratory: no respiratory distress and no cough Cardiovascular: Vessels: no JVD Chest (Breasts): Chest: normal inspection of chest Gastrointestinal (Abdomen): Inspection/Auscultation: abdomen not distended and no abdominal edema Percussion/Palpation: abdomen soft; abdomen nontender Musculoskeletal: Head/Neck/Chest: normocephalic and head atraumatic Skin: no rashes, warm and dry Neurologic: awake; not confused and not obtunded Psychiatric: Orientation: alert and oriented x 3 Eye Contact: good eye contact Affect: no depressed affect Genitourinary: no CVA tenderness gann draining valdez red, irrigated to light pink Lymphatic: no lymphadenopathy and no lymphedema Results & Data Vital Signs (Past 12 Hours) Vital Signs Temp Pulse Resp BP Pulse Ox 06/22/19 07:44 36.7 C 72 18 148/70 H 96 11/05/19 23:19 36.9 C 72 20 161/73 H 96 PG Care Time/CCT Total # of Minutes Spent Total Time Spent with Patient: Total time spent is greater than 50% in coordination of care (as documented) at patient's floor/unit and/or counseling patient:
--- NOTE | 2019-06-22 19:41 | Hospitalist Progress Note ---
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, now down to 1.07 after Borrego placed and given IVFs Borrego initially drained 2L urine out No h/o prostate or bladder issues previously known UA does not appear infected and urine culture negative Continues with gross hematuria as below Acute kidney injury has now resolved -continue Borrego catheter as below treating for urine retention -continue to follow renal function -no need for Nephrology consultation as rapid improvement and no need for urgent HD -changed to low K+ diet for mild hyperkalemia which is now resolved -Have since discontinued IV fluids -Continue to follow I/Os (2) Urinary retention: Borrego catheter inserted and 2L drained initially in the ER Now with gross hematuria-could be trauma during catheterization and urology also thinks hematuria is from extreme distention of bladder causing bleeding- nonetheless, needs workup for hematuria as outpt to include cystoscopy and likely CT renal protocol -Consult urology appreciated -Still had a small clot causing obstruction on 06/22 with irrigation by urology -continue hand irrigation every shift and can exchange catheter to 20 Fr if needed -started FLomax and finasteride -We will need to teach the how to irrigate the catheter at home (3) Bilateral hydronephrosis: Secondary to urinary retention. Treatment as above (4) Hematuria: Further plan per urologist as above likely secondary to significant bladder distention and possible Borrego trauma. Monitor labs and transfuse accordingly but no transfusion needed at this point. No evidence of infection on UA, Ur cx pending Follow CBC in the morning, mild anemia with hgb 10.7 -Continue to follow clinically here irrigate every shift as above (5) Hyperkalemia: K+ elevated on admission due to acute renal failure and now improved down to 4.3 -Continue low K+ diet -follow BMP in AM (6) DVT prophylaxis: SCDs Dispo-stable for downgrade off telemetry to medical floor Hopeful to dc to home tomorrow when can come in for teaching on Borrego irrigation He is ambulating the hallways independently and does not need any rehab placement Subjective Patient feeling very well. Still with blood in the Borrego bag. Urology nurse practitioner irrigated and had a small clot come out followed by 750 mils of urine today. He is making a good amount of urine. Denies chest pain or shortness of breath, denies abdominal pain or back pain. He is afebrile. He continues to ambulate multiple times around the halls and is doing very well otherwise. Denies lightheadedness. Review of Systems Review of Systems: All systems reviewed & are unremarkable except as noted in HPI & below Physical Exam Constitutional: WD/WN, vitals as above Eyes: + anicteric sclerae Neck: trachea midline, no thyromegaly Respiratory: normal respiratory effort, lungs clear to auscultation Cardiovascular: RRR, no murmur, no edema Gastrointestinal (Abdomen): normal bowel sounds, soft, nontender, no hepatosplenomegaly Musculoskeletal: Extremities: extremities normal to inspection; no cyanosis and no clubbing Skin: no rashes, warm and dry Neurologic: moves all extremities and awake; no focal motor deficits Psychiatric: A+Ox3, euthymic affect Genitourinary: Borrego catheter in place draining valdez red urine, no clots Results & Data Vital Signs (Past 12 Hours) Vital Signs Temp Pulse Resp BP Pulse Ox 06/22/19 18:44 36.2 C L 76 18 159/70 H 96 06/22/19 15:35 36.3 C L 70 20 146/71 H 99 06/22/19 07:44 36.7 C 72 18 148/70 H 96 Laboratory Results 06/22/19 Range/Units 06:01 Sodium 141 (136-145) mmol/L Potassium 4.3 (3.5-5.1) mmol/L Chloride 113 H (98-107) mmol/L Carbon Dioxide 24 (21-32) mmol/L Anion Gap 4.0 (3-11) BUN 19 H (7-18) mg/dl Creatinine 1.07 (0.6-1.4) mg/dl Est Cr Clr Drug Dosing 64.8 ml/min Est GFR ( Amer) 77.2 Est GFR (Non-Af Amer) 66.6 BUN/Creatinine Ratio 18.2 (10-20) Glucose 92 (70-99) mg/dl Calcium 9.2 (8.5-10.1) mg/dl Urine culture-no growth PG Care Time/CCT Total # of Minutes Spent Total Time Spent with Patient: Total time spent is greater than 50% in coordination of care (as documented) at patient's floor/unit and/or counseling patient:
[2019-06-22] MEDS: TAMSULOSIN HCL 0.4 MG CAP PO SCH (21:58)
[2019-06-23 07:03] LABS: Basophils # (auto) 0.05 K/uL (0-0.2); Basophils % (auto) 0.5 %; Eosinophils # (auto) 0.39 K/uL (0-0.5); Eosinophils % (auto) 4.2 %; Hematocrit (blood only) 32.4 % (42-52); Hemoglobin 10.7 g/dL (14.0-18.0); Immature Granulocytes # (auto) 0.11 K/uL (0.00-0.02); Immature Granulocytes % (auto) 1.2 %; Lymphocytes # (auto) 1.67 K/uL (1.2-3.4); Lymphocytes % (auto) 18.1 %; Mean Corpuscular Hemoglobin 30.3 pg (25-34); Mean Corpuscular Volume 91.8 fL (80-100); Monocytes # (auto) 1.05 K/uL (0.11-0.59); Monocytes % (auto) 11.4 %; Neutrophils # (auto) 5.96 K/uL (1.4-6.5); Neutrophils % (auto) 64.6 %; Platelet Count 359 K/uL (130-400); RDW Coefficient of Variation 13.3 % (11.5-14.5); RDW Standard Deviation 44.8 fL (36.4-46.3); Red Blood Count 3.53 M/uL (4.7-6.1); White Blood Count 9.23 K/uL (4.8-10.8)
[2019-06-23] MEDS: FINASTERIDE 5 MG TAB PO SCH (07:17)
[2019-06-23 07:22] LABS: Calcium 9.3 mg/dl (8.5-10.1); Est GFR (Non-African American) 68.1; Potassium 4.2 mmol/L (3.5-5.1)
--- NOTE | 2019-06-23 10:09 | Urology Progress Note ---
Date of Service June 23, 2019 Assessment & Plan (1) Hematuria: 78yo M with BPH, admitted with AUR, ANDREAS, hematuria. Gann draining clear yellow. Cr and H/H remains stable. at bedside, we discussed her learning gann catheter irrigation. Given that his hematuria has resolved, I left decision to learn irrigation up to her. I don't feel it is imperative for her to learn at this point, but may be helpful if hematuria returns. Appreciate Case management's assistance in coordinating home nursing care. Discussed gann catheter management and care with pt. Answered all questions. Plan for outpatient TOV on 07/01 and followup cystoscopy on 07/[address] Case. Will add appt times to discharge. Okay to discharge home from [facility] with gann in place, with Rx for tamsulosin and finasteride. Long discussion with last evening, she is very concerned about patient's discharge plans. Wishes for us to keep him inpatient until Thursday due to family logistics. Plan for TOV in 1-2 week as outpatient, followed by outpatient cystoscopy and formal hematuria workup. Will continue to follow while inpatient. Subjective 78yo M with BPH, admitted ANDREAS, UR, and hematuria. Pt continues to do very well. at bedside today. Denies pain/n/v/f/c. Tolerating catheter well, denies suprapubic pain. Gann now draining clear yellow urine, no residual clots. Review of Systems Review of Systems: All systems reviewed & are unremarkable except as noted in HPI & below Physical Exam Constitutional: no acute distress and not ill appearing Eyes: no nystagmus ENMT: Ears: no hearing impairment Neck: trachea midline Respiratory: no respiratory distress and no cough Cardiovascular: Vessels: no JVD Chest (Breasts): Chest: normal inspection of chest Gastrointestinal (Abdomen): Inspection/Auscultation: abdomen not distended and no abdominal edema Percussion/Palpation: abdomen soft; abdomen nontender Musculoskeletal: Head/Neck/Chest: normocephalic and head atraumatic Skin: no rashes, warm and dry Neurologic: awake; not confused and not obtunded Psychiatric: Orientation: alert and oriented x 3 Eye Contact: good eye contact Affect: no depressed affect Genitourinary: no CVA tenderness gann draining clear yellow. Lymphatic: no lymphadenopathy and no lymphedema Results & Data Vital Signs (Past 12 Hours) Vital Signs Temp Pulse Resp BP BP Pulse Ox 06/23/19 07:43 36.8 C 73 16 144/68 H 95 06/22/19 23:00 36.8 C 75 20 149/68 H 96 PG Care Time/CCT Total # of Minutes Spent Total Time Spent with Patient: Total time spent is greater than 50% in coordination of care (as documented) at patient's floor/unit and/or counseling patient:
--- NOTE | 2019-06-23 12:00 | Discharge Summary ---
Date of Service June 23, 2019 Admission HPI Per Admitting Provider The patient is 78 years old male who presented to the emergency room with complaints of urinary retention. Patient states that he is having decreased amount of urine for last 4 days. He denies any abdominal pain. No nausea vomiting. In the emergency room Borrego catheter was inserted and around 2 L of urine obtained. Borrego's catheter also showed hematuria. The further work-up done in the ER shows that patient has bilateral hydronephrosis. He will be admitted for further evaluation and management. Blood labs show acute renal failure. Principal Diagnosis Acute kidney injury, urinary retention, hyperkalemia, gross hematuria Discharge Exam Constitutional WD/WN, vitals as above Eyes + anicteric sclerae ENMT external ear and nose normal, oropharynx normal Neck trachea midline, no thyromegaly Respiratory normal respiratory effort, lungs clear to auscultation Cardiovascular RRR, no murmur, no edema Gastrointestinal (Abdomen) normal bowel sounds, soft, nontender, no hepatosplenomegaly Musculoskeletal Extremities: extremities normal to inspection; no cyanosis and no clubbing Skin no rashes, warm and dry Neurologic moves all extremities and awake; no focal motor deficits Psychiatric A+Ox3, euthymic affect Genitourinary no testicular masses, no penis abnormality Borrego catheter in place draining clear, yellow urine Discharge Data Allergies Allergy/AdvReac Type Severity Reaction Status Date / Time minocycline Allergy Severe SEVERE LEG Unverified 06/19/19 09:18 RASH ketorolac [From Toradol] Allergy Mild GI ISSUES? 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, now down to 1.05 after Borrego placed and given IVFs Borrego initially drained 2L urine out No h/o prostate or bladder issues previously known UA does not appear infected and urine culture negative Continued with gross hematuria as below which resolved by the day of discharge Acute kidney injury has now resolved -continue Borrego catheter as below treating for urine retention -was on low K+ diet for mild hyperkalemia which is now resolved-can now have regular diet on discharge -Have since discontinued IV fluids -stable for dc to home with Borrego in place and close Urology follow up (2) Urinary retention: Borrego catheter inserted and 2L drained initially in the ER Then with gross hematuria for several days-Secondary to trauma during catheterization and urology also thinks hematuria is from extreme distention of bladder causing bleeding-nonetheless, needs workup for hematuria as outpt to include cystoscopy and likely CT renal protocol -Consult urology appreciated -hematuria resolved by day of discharge -started FLomax and finasteride-continue upon discharge -follow up with urology next week for trial of void and then cystoscopy on 07/20 (3) Bilateral hydronephrosis: Secondary to urinary retention. Treatment as above (4) Hematuria: Further plan per urologist as above likely secondary to significant bladder distention and possible Borrego trauma. Hgb slight drop to 10.7 and stable, no transfusion required No evidence of infection on UA, Ur cx pending Now resolved as above (5) Hyperkalemia: K+ elevated on admission due to acute renal failure and now normalized treated with treatment of ANDREAS as above (6) DVT prophylaxis: SCDs Dispo-stable for dc to home Ambulating multiple times daily and doing very well, no rehab placement necessary Total Time Total Time Spent Total Time Spent (In Minutes): >30 min Total Time Includes: Examination of the Patient, Discharge Planning and Medication Reconciliation Discharge Plan Discharge Items Patient Disposition: Home - Home Health Services Reason For Visit: ARF Discharge Diagnosis: Acute kidney injury, urinary retention, hematuria Condition on Discharge: Good Goals: You have been hospitalized for an acute medical problem. During your stay at [facility], we have made an effort to correct the problem that brought you to the hospital while keeping you as comfortable as possible. Medications were used to bring your condition under control and your discharge instructions will include directions for any medications you should take after leaving the hospital. Please make sure you see your Primary Care Provider as part of your follow up plan. Activity: Resume your previous activity Bathing: No limitations Non-emergency contact: Primary Care Provider and Urologist Call non-emergency contact if: you have any medication questions, your symptoms worsen and your temperature is above 101 Follow-up/Referrals: William Case DO [Physician] - 07/20/19 9:20 am (If you need to change this appointment, call the office at [phone]. You are also scheduled to see Dr. Case for a cystoscopy on ThursdayJuly 20 at 9:20 am, please arrive 20 minutes early for check-in. ) Jon Basurto D.O. [Primary Care Provider] - 06/27/19 9:30 am (Please, follow up with Dr. Basurto on ThursdayJune 27 at 9:30 am. THIS APPOINTMENT WILL BE AT THE [address] [place] [address] OFFICE IN [place] If you need to change this appointment, call the office at [phone].) PG [facility],Nurse [Physician] - 07/01/19 10:30 am (Please, follow up at The [facility] Urology Office on ThursdayJuly 01 at 10:30 am for catheter removal *The office is located at [address] [place] [address] in [place]. If you need to change this appointment, call the office at [phone]. ) Diet: Regular Addtl Attending Provider Instructions: You were admitted for kidney failure due to urinary retention and had a Borrego catheter placed. Your kidneys are back to normal and you were started on two medications for your prostate to help shrink it. Please follow up with Urology as scheduled for you. You will be given a leg bag for your Borrego catheter to make it easier to walk around with your catheter in place. Please follow up also with your PCP as scheduled for you on Thursday. Pending Studies at Discharge: No Stand-Alone Forms: [facility] Medications and DC Order Prescriptions: New tamsulosin 0.4 mg Capsule 0.4 mg PO HS Qty: 30 RF: 0 finasteride [Proscar] 5 mg Tablet 5 mg PO QAM Qty: 30 RF: 0 Continued cholecalciferol (vitamin D3) [Vitamin D3] 1,000 unit Capsule 1,000 unit PO DAILY RF: 0 PreserVision AREDS-2 [id number] [id number] Capsule 1 tab PO AMHS RF: 0 Discharge Orders: Discharge Order (Routine); Ordered 06/23/19 Ordered By: Macy Wall Admission Data Admit Date/Time: 06/19/19 11:55 Attending Provider: Macy Wall Admit Provider: Herson Bosch Primary Care Provider: Jon Basurto Other Providers: William Case
== END 2019-06-23 14:40 | disposition home health service (06) | DRG 684 ==
LOC: ED 08:47 → SUATTDRO 11:55 → 2N 11:55 → 4W 06-22 18:14

== ENCOUNTER 2019-07-28 07:36 | Observation (INO) ==
--- NOTE | 2019-07-20 14:25 | PAT Medication Instructions ---
Medication Instructions Date of Service July 20, 2019 Home Medications Medication Instructions Recorded finasteride 5 mg tablet 5 mg PO QAM #30 tab 07/18/19 PreserVision AREDS-2 1 tab PO AMHS cholecalciferol (vitamin D3) [Vitamin D3] 1,000 unit PO QAM finasteride 5 mg tablet 5 mg PO QAM silodosin [Rapaflo] 8 mg PO QPM STOP taking 2 weeks before surgery (or as soon as possible if surgery is within 2 weeks) PreserVision AREDS-2 1 tab PO AMHS DO NOT take the morning of surgery cholecalciferol (vitamin D3) [Vitamin D3] 1,000 unit PO QAM Take morning of surgery With a small sip of water, OTHERWISE NOTHING TO EAT OR DRINK AFTER MIDNIGHT: finasteride 5 mg tablet 5 mg PO QAM Take evening before surgery silodosin [Rapaflo] 8 mg PO QPM Other Notes If you have any questions please call us at [phone] or [phone] or [phone] or [phone]
--- NOTE | 2019-07-21 12:16 | Anesthesiology Consultation ---
Date of Service July 21, 2019 Assessment & Plan (1) Encounter for pre-operative examination: Chart Review Chart Review: Acceptable Risk for Surgery and Patient seen in Pre Admission Testing Teaching & Discussion Pre-Anesthesia Teaching/Discussion Notes: Instructed NPO after midnight before surgery,except medications with 15 cc of water. Medication instructions provided according to the PAT guidelines. History Surgery Operation Date: 07/28/19 09:05 Proposed Procedures p Transurethral Resection of Prostate - William Case DO Height/Weight Height: 5 ft 10 in Weight: 89.6 kg Allergies Allergy/AdvReac Type Severity Reaction Status Date / Time minocycline Allergy Severe leg rash Verified 07/21/19 12:30 ketorolac [From Toradol] AdvReac Mild N/V Verified 07/21/19 12:30 Medications Home Medications Medication Instructions Recorded Confirmed Last Taken PreserVision AREDS-2 1 tab PO AMHS 06/19/19 07/18/19 Unknown cholecalciferol (vitamin D3) 1,000 unit PO QAM 06/19/19 07/18/19 Unknown [Vitamin D3] finasteride 5 mg tablet 5 mg PO QAM #30 tab 07/18/19 Unknown silodosin [Rapaflo] 8 mg PO QPM 07/18/19 07/18/19 Unknown Past Medical History Medical History ANDREAS (acute kidney injury) hx 06/2019 in setting of urinary retention/obstruction Enlarged prostate Macular degeneration disease Urinary retention + straight cath 5x/day Exercise / Class Metabolic Activity II 4-5 Yardwork/Stairs/Walk up hill Past Family History Family History Other Family history non-contributory Past Surgical History Surgical History History of knee replacement procedure of left knee History of knee replacement procedure of right knee Past Anesthesia History No Hx of Anesthesia Complications and No Family Hx of Anesthesia Complications History of PONV No Hx of PONV and No Hx of Motion Sickness Social History Smoking Status: Former smoker Do You Dip or Chew Tobacco: No Smoking End Date: QUIT 50 YEARS AGO Hx Alcohol Use: Yes alcohol intake frequency: holidays/special occasions only Hx Substance Use: No Review of Systems Patient denies chest pain, shortness of breath, dyspnea on exertion, cough, wheezing, palpitations. Physical Exam Vital Signs VITALS BP 135/66 P 65 TEMP 98.3 SP02 98%RA RESP 16 PHYSICAL Full neck and c-spine range of motion. Full TMJ range of motion. TMD 3.5 finger breaths Mallampati Score 1 Dentition: partials upper/lower Lungs: clear throughout to auscultation Cardiac: regular rate and rhythm, no murmurs noted Spine: normal Carotid arteries: negative bruit Extremities: no edema Trimmed melissa Testing Laboratory Results 07/21/19 12:37 07/21/19 12:37 Urine Color Yellow 07/21/19 12:37 Urine Appearance Turbid (Clear) A 07/21/19 12:37 Urine pH 7.5 (4.5-7.5) 07/21/19 12:37 Ur Specific [place] 1.010 (1.000-1.030) 07/21/19 12:37 Urine Protein 2+ (Negative) H 07/21/19 12:37 Urine Glucose (UA) Negative (Negative) 07/21/19 12:37 Urine Ketones Negative (Negative) 07/21/19 12:37 Urine Nitrite Negative (Negative) 07/21/19 12:37 Ur Leukocyte Esterase 3+ (Negative) H 07/21/19 12:37 Urine WBC (Auto) >30 /hpf (0-5) H 07/21/19 12:37 Urine RBC (Auto) 10-30 /hpf (0-4) H 07/21/19 12:37 U Hyaline Cast (Auto) 1-5 /lpf (0-5) 07/21/19 12:37 U Epithel Cells (Auto) 0-5 /lpf (0-5) 07/21/19 12:37 Urine Bacteria (Auto) 4+ (Negative) H 07/21/19 12:37 *Surgeon office made aware of elevated WBC* Electrocardiogram Date: 07/21/19 NSR at 65bpm. *unconfirmed report* Chest X-Ray Date: 07/21/19 Findings: + NAD
--- NOTE | 2019-07-21 13:23 | XRay Report ---
XR chest Pre-admission PA/Lat CLINICAL HISTORY: pat preoperative evaluation COMPARISON STUDY: No previous studies for comparison. FINDINGS: The bones soft tissues and hemidiaphragms are normal. The cardiomediastinal silhouette is n ormal. The lungs are clear. The pulmonary vasculature is normal. IMPRESSION: Negative chest. The above report was generated using voice recognition software. It may contain grammatical, syntax or spelling errors. Electronically signed by: Stewart Nelson M.D. 07/21/2019 1:22 PM
[2019-07-21 13:52] LABS: Basophils # (auto) 0.02 K/uL (0-0.2); Basophils % (auto) 0.2 %; Eosinophils # (auto) 0.06 K/uL (0-0.5); Eosinophils % (auto) 0.5 %; Hematocrit (blood only) 37.6 % (42-52); Hemoglobin 12.4 g/dL (14.0-18.0); Immature Granulocytes # (auto) 0.03 K/uL (0.00-0.02); Immature Granulocytes % (auto) 0.3 %; Lymphocytes # (auto) 1.18 K/uL (1.2-3.4); Mean Corpuscular Hemoglobin 31.1 pg (25-34); Mean Corpuscular Volume 94.2 fL (80-100); Mean Platelet Volume 9.7 fL (7.4-10.4); Monocytes # (auto) 2.33 K/uL (0.11-0.59); Monocytes % (auto) 19.8 %; Neutrophils # (auto) 8.15 K/uL (1.4-6.5); Neutrophils % (auto) 69.2 %; Platelet Count 220 K/uL (130-400); RDW Standard Deviation 48.4 fL (36.4-46.3); Red Blood Count 3.99 M/uL (4.7-6.1); White Blood Count 11.77 K/uL (4.8-10.8)
[2019-07-21 13:57] LABS: Appearance Urine Turbid (Clear); Bacteria Urine Automated 4+ (Negative); Bilirubin Urine Negative (Negative); Blood Urine 3+ (Negative); Color Urine Yellow; Epithelial Cell Urine Auto 0-5 /lpf (0-5); Glucose Urine UA Negative (Negative); Ketones Urine Negative (Negative); Leukocyte Esterase Urine 3+ (Negative); Nitrite Urine Negative (Negative); Urobilinogen Urine Negative (Negative); WBC Urine Automated >30 /hpf (0-5); pH Urine 7.5 (4.5-7.5)
[2019-07-21 14:00] LABS: BUN Creatinine Ratio 20.5 (10-20); Creatinine Clr Calc Pharmacy 71.1 ml/min; Est GFR (African American) 85.8; Est GFR (Non-African American) 74.1; Potassium 4.8 mmol/L (3.5-5.1)
[2019-07-21 14:09] LABS: Protein Urine 2+ (Negative); Sulfosalicylic Acid Urine Positive (Negative)
[~2019-07-28 07:36] MED LIST: CEFAZOLIN 2000MG 2,000 MG/15 ML SYR IV SCH; LR 15ML/HR IV SCH
--- NOTE | 2019-07-28 08:46 | History & Physical Bridge Note ---
Date of Service July 28, 2019 History & Physical Bridge Note I have examined the patient, reviewed the History & Physical and in the interval since the performance of the History & Physical I have noted the following changes of clinical significance: no changes noted Plan for transurethral resection of prostate
[2019-07-28] MEDS ORDERED: ePHEDrine sulfate 50 MG/ML AMP IV PRN (09:19)
[2019-07-28] MEDS ORDERED: ONDANSETRON INJ 2 MG/ML 2 ML VIAL IV PRN (09:19)
[2019-07-28] MEDS ORDERED: ATROPINE SULFATE 0.1 MG/ML 10ML SYR IV PRN (09:19)
[2019-07-28] MEDS ORDERED: fentaNYL citrate 100 MCG/2 ML VIAL IV PRN (09:19)
[2019-07-28] MEDS ORDERED: LIDOCAINE HCL 2% 2 ML VIAL/AMP(20MG/ML) INFIL ONE (09:40)
[2019-07-28] MEDS ORDERED: MIDAZOLAM HCL 1 MG/ML 2ML VIAL ONE (09:40)
[2019-07-28] MEDS ORDERED: fentaNYL citrate 100 MCG/2 ML VIAL ONE (09:40)
[2019-07-28] MEDS ORDERED: PROPOFOL IV EMULSION 10 MG/ML 20 ML VIAL IV ONE (09:40)
[2019-07-28] MEDS ORDERED: ePHEDrine sulfate 50 MG/ML AMP ONE (11:01)
[2019-07-28] MEDS ORDERED: BELLADONNA/OPIUM SUPP 60 MG SUPP PR ONE ×2 (11:14→12:53)
[2019-07-28] MEDS ORDERED: BELLADONNA/OPIUM SUPP 60 MG SUPP PR PRN (11:14)
--- NOTE | 2019-07-28 11:21 | Operative Report ---
PG Post Operative Report Pre & Post Diagnosis Operation Date: 07/28/19 09:40 Pre-Op Diagnosis: Enlarged Prostate with Urinary Obstruction Post-Op Diagnosis: Enlarged Prostate with Urinary Obstruction I identified the patient and participated in the time-out.: Yes Procedure Operation Date: 07/28/19 09:40 Actual Procedures p Transurethral Resection of Prostate(Not Applicable) - William Case DO Surgeon William Case, II, DO Jig Builder None Estimated Blood Loss 10 Findings Consistent with Post-Op Diagnosis Enlarged and hard Prostate with obstruction. Multiple abscesses unroofed. Prostate hard on DEVYN. Specimens Prostate resection chips Drains 22Fr Catheter Anesthesia Type General Complications none Disposition Disposition: Recovery Room Indications Patient with obstruction due to prostate enlargement. Risks and benefits discussed at length. Description of Procedure Patient was consented and brought back to the operating room. Patient was placed under anesthesia in the supine position and moved to the dorsal lithotomy position. Patient was prepped and draped in the regular sterile fashion. A time out was completed. A 30degree Cystoscope was placed into the bladder and the entire bladder was examined. The UO's were identified as well as the bladder neck, trigone, dome, and the other important landmarks. The prostatic urethra and large lobes/adenoma was assessed and the veru and bladder neck identified and area/size was assessed. The resection scope was placed and the fine bipolar loop was selected. Starting at the 5 and 7 o'clock positions, a channel was created from bladder neck to the veru. The Specimen was removed and sent for analysis. The resection bed and any bleeding areas were fulgurated/cauterized and the entire area inspected. All bleeding was controlled. The bladder was inspected a final time. The bladder was emptied and irrigated. All specimen and debris was removed. The scope was removed with the bladder partially full. A catheter was placed and balloon elevated. This was easily irrigated. The patient was cleaned, aroused from anesthesia, and transferred to the pacu in stable condition having tolerated the procedure well with no complications. I was present and participated in all aspects of the procedure. The patient will be monitored in the PACU until transferred. I attest to the content of the Intraoperative Record and any orders documented therein. Any exceptions are noted below.
[2019-07-28 12:14] LABS: Basophils # (auto) 0.03 K/uL (0-0.2); Basophils % (auto) 0.3 %; Eosinophils # (auto) 0.11 K/uL (0-0.5); Eosinophils % (auto) 1.2 %; Hematocrit (blood only) 32.6 % (42-52); Hemoglobin 10.8 g/dL (14.0-18.0); Immature Granulocytes # (auto) 0.02 K/uL (0.00-0.02); Immature Granulocytes % (auto) 0.2 %; Lymphocytes # (auto) 1.05 K/uL (1.2-3.4); Lymphocytes % (auto) 11.4 %; Mean Corpuscular Hemoglobin 30.7 pg (25-34); Mean Corpuscular Hgb Conc 33.1 g/dL (32-36); Mean Corpuscular Volume 92.6 fL (80-100); Mean Platelet Volume 8.4 fL (7.4-10.4); Monocytes # (auto) 0.88 K/uL (0.11-0.59); Monocytes % (auto) 9.6 %; Neutrophils # (auto) 7.12 K/uL (1.4-6.5); Neutrophils % (auto) 77.3 %; Platelet Count 232 K/uL (130-400); RDW Coefficient of Variation 13.7 % (11.5-14.5); RDW Standard Deviation 46.3 fL (36.4-46.3); Red Blood Count 3.52 M/uL (4.7-6.1); White Blood Count 9.21 K/uL (4.8-10.8)
[2019-07-28 12:22] LABS: Albumin Level 2.5 gm/dl (3.4-5.0); BUN Creatinine Ratio 19.7 (10-20); Calcium 9.1 mg/dl (8.5-10.1); Creatinine Clr Calc Pharmacy 72.5 ml/min; Est GFR (African American) 89.1; Est GFR (Non-African American) 76.9
[2019-07-28 12:25] LABS: Albumin Globulin Ratio 0.9 (0.9-2); Bilirubin,Total 0.3 mg/dl (0.2-1); Globulin 2.7 gm/dl (2.5-4.0); Total Protein 5.2 gm/dl (6.4-8.2)
[2019-07-28] MEDS ORDERED: ACETAMINOPHEN 1,000 MG/100 ML VIAL IV PRN (12:53)
[2019-07-28] MEDS ORDERED: MoRPHine SULFATE 10 MG/ML CARP/VIAL IV PRN (12:53)
[2019-07-28] MEDS ORDERED: OXYCODONE HCL IR 5 MG TAB (IMMEDIATE RELEASE) PO PRN (12:53)
--- NOTE | 2019-07-28 13:15 | Anesthesiology Progress Note ---
Date of Service July 28, 2019 Anesthesia Post Procedure Vital Signs Vital Signs: Temp Pulse Pulse Resp BP BP Pulse Ox 07/28/19 12:40 97.9 F 59 L 15 125/65 95 07/28/19 12:20 65 20 116/63 96 07/28/19 12:10 98.2 F 66 21 120/56 L 96 07/28/19 12:00 69 17 116/58 L 95 07/28/19 11:50 72 21 115/52 L 100 07/28/19 11:40 66 14 114/56 L 100 07/28/19 11:31 97.2 F L 74 19 122/56 L 100 07/28/19 08:37 98.4 F 70 18 139/70 96 Pain Intensity Penis: Pain Intensity: 1 Transfer of Care Handoff Completed per policy Notes Mental Status: alert / awake / arousable and participated in evaluation Patient Amnestic to Procedure: Yes Nausea / Vomiting: adequately controlled Pain: adequately controlled Airway Patency, RR, SpO2: stable & adequate BP & HR: stable & adequate Hydration State: stable & adequate Anesthetic Complications: no major complications apparent and Pt Satisfied with anesthetic care
[2019-07-28] MEDS: SODIUM CHLORIDE 0.9% 1000ML 1,000 ML IV SCH (13:21)
[2019-07-28] MEDS: FINASTERIDE 5 MG TAB PO SCH ×2 (13:54→13:56)
[2019-07-28] MEDS ORDERED: CEFAZOLIN 1000MG 1,000 MG/7.5 ML SYR IV SCH (18:00)
[2019-07-28] MEDS: CEFAZOLIN 2000MG 2,000 MG/15 ML SYR IV SCH (18:06)
[2019-07-28] MEDS: CEROVITE ADV FORMULA TAB PO SCH (20:17)
[2019-07-28] MEDS ORDERED: SILODOSIN 8 MG PO SCH (21:00)
[2019-07-29] MEDS ORDERED: CIPROFLOXACIN 500 MG TAB PO SCH
[2019-07-29] MEDS: SODIUM CHLORIDE 0.9% 1000ML 1,000 ML IV SCH (01:33)
[2019-07-29] MEDS: CEFAZOLIN 2000MG 2,000 MG/15 ML SYR IV SCH (01:34)
--- NOTE | 2019-07-29 08:14 | Anesthesiology Progress Note ---
Date of Service July 29, 2019 Anesthesia Post Procedure Vital Signs Vital Signs: Temp Pulse Pulse Pulse Resp BP BP 07/29/19 06:56 36.7 C 59 L 19 118/60 07/29/19 02:40 36.7 C 60 16 120/61 07/28/19 23:00 36.5 C 62 16 123/64 07/28/19 19:14 36.5 C 67 16 129/57 L 07/28/19 15:39 36.5 C 61 16 113/66 07/28/19 14:55 36.3 C L 64 16 123/65 07/28/19 13:44 36.4 C L 70 16 125/70 07/28/19 13:20 36.5 C 54 L 16 124/59 L 07/28/19 12:40 36.6 C 59 L 15 125/65 07/28/19 12:20 65 20 116/63 07/28/19 12:10 36.8 C 66 21 120/56 L 07/28/19 12:00 69 17 116/58 L 07/28/19 11:50 72 21 115/52 L 07/28/19 11:40 66 14 114/56 L 07/28/19 11:31 36.2 C L 74 19 122/56 L 07/28/19 08:37 36.9 C 70 18 139/70 Pulse Ox 07/29/19 06:56 95 07/29/19 02:40 96 07/28/19 23:00 97 07/28/19 19:14 98 07/28/19 15:39 97 07/28/19 14:55 98 07/28/19 13:44 96 07/28/19 13:20 96 07/28/19 12:40 95 07/28/19 12:20 96 07/28/19 12:10 96 07/28/19 12:00 95 07/28/19 11:50 100 07/28/19 11:40 100 07/28/19 11:31 100 07/28/19 08:37 96 Pain Intensity Penis: Pain Intensity: 1 Notes Mental Status: alert / awake / arousable and participated in evaluation Patient Amnestic to Procedure: Yes Nausea / Vomiting: adequately controlled Pain: adequately controlled Airway Patency, RR, SpO2: stable & adequate BP & HR: stable & adequate Hydration State: stable & adequate Anesthetic Complications: no major complications apparent and Pt Satisfied with anesthetic care
[2019-07-29 08:39] LABS: Albumin Level 2.4 gm/dl (3.4-5.0); BUN Creatinine Ratio 15.7 (10-20); Calcium 9.5 mg/dl (8.5-10.1); Creatinine Clr Calc Pharmacy 66.9 ml/min; Est GFR (African American) 80.8; Est GFR (Non-African American) 69.7; Potassium 4.5 mmol/L (3.5-5.1)
[2019-07-29 08:42] LABS: Albumin Globulin Ratio 0.9 (0.9-2); Bilirubin,Total 0.2 mg/dl (0.2-1); Globulin 2.8 gm/dl (2.5-4.0); Total Protein 5.2 gm/dl (6.4-8.2)
[2019-07-29] MEDS: CEROVITE ADV FORMULA TAB PO SCH (08:46)
[2019-07-29] MEDS: FINASTERIDE 5 MG TAB PO SCH (08:46)
[2019-07-29] MEDS ORDERED: FINASTERIDE 5 MG TAB PO SCH ×2 (09:00)
[2019-07-29] MEDS ORDERED: CHOLECALCIFEROL 1,000 UNITS 25 MCG TAB PO SCH (09:00)
[2019-07-29] MEDS ORDERED: IOVERSOL 100ml IV PRN (09:47)
--- NOTE | 2019-07-29 10:08 | History & Physical Report ---
Date of Service July 29, 2019 Assessment & Plan (1) Urinary retention with incomplete bladder emptyinyo M POD #1 s/p TURP with Dr. Case, grossly elevated PSA. CT abd pelvis complete - Pt progressing as anticipated CBI clamped at 9AM, okay to d/c and plug irrigation port around noon if continues to drain light pink/valdez urine. Light hematuria expected on and off. Clinical course and discharge instructions reviewed. All questions answered. History of Present Illness Primary Care Provider: Jon Basurto 78yo POD #1 s/p TURP with Dr. Case Pt states he feels "great". tolerating regular diet. Has not been OOB yet. CBI running slow rate- draining clear urine. Denies n/v/f/c. Dr Case requesting pt undergo CT abd/pelvis with Contrast prior to discharge to evaluate anatomy given grossly elevated PSA. Labs reviewed - h/h, Alk phos WNL VSS. Allergies Allergy/AdvReac Type Severity Reaction Status Date / Time minocycline Allergy Severe leg rash Verified 07/28/19 08:31 ketorolac [From Toradol] AdvReac Mild N/V Verified 07/28/19 08:31 Home Medications Home Medications Medication Instructions Recorded Confirmed Type PreserVision AREDS-2 1 tab PO AMHS 06/19/19 07/28/19 History cholecalciferol (vitamin D3) 1,000 unit PO QAM 06/19/19 07/28/19 History [Vitamin D3] finasteride 5 mg tablet 5 mg PO QAM #30 tab 07/18/19 07/28/19 Rx silodosin [Rapaflo] 8 mg PO QPM 07/18/19 07/28/19 History ciprofloxacin HCl 500 mg tablet 500 mg PO BID 10 Days #20 tab 07/22/19 07/28/19 Rx Past Med/Surg History Medical History ANDREAS (acute kidney injury) hx 06/2019 in setting of urinary retention/obstruction Enlarged prostate Macular degeneration disease Urinary retention + straight cath 5x/day Surgical History History of knee replacement procedure of left knee History of knee replacement procedure of right knee Family History Other Family history non-contributory Social History Preferred Language: Macedonian Communication Ability: Effective Radio Frequency Engineer Required: No Beliefs That Will Affect Care: None marital status: Current Living Situation: Spouse current occupational status: retired Feels Safe at Home: Yes Safety Concerns: Feels Safe At This Time Smoking Status: Former smoker Do You Dip or Chew Tobacco: No ; Smoking End Date: QUIT 50 YEARS AGO ; Second Hand Exposure: No ; Hx Alcohol Use: Yes Hx Substance Use: No Review of Systems All systems reviewed & are unremarkable except as noted in HPI & below Physical Exam Physical Exam: A&Ox3 resp rate regular abd soft, nontender 3-way catheter intact, draining clear yellow at slow rate CBI Results & Data Vital Signs (Past 12 Hours) Vital Signs Temp Pulse Resp BP BP Pulse Ox 07/29/19 06:56 36.7 C 59 L 19 118/60 95 07/29/19 02:40 36.7 C 60 16 120/61 96 07/28/19 23:00 36.5 C 62 16 123/64 97 Code Status & VTE Plan VTE Prophylaxis Plan VTE Prophylaxis will be ordered: Yes
--- NOTE | 2019-07-29 10:11 | Urology Progress Note ---
Date of Service July 29, 2019 Assessment & Plan (1) Urinary retention with incomplete bladder emptyinyo M POD #1 s/p TURP with Dr. Case, grossly elevated PSA. CT abd pelvis complete, results to be reviewed at outpatient followup. Pt progressing as anticipated CBI clamped at 9AM, okay to d/c and plug irrigation port around noon if continues to drain light pink/valdez urine. Light hematuria expected on and off. Clinical course and discharge instructions reviewed. All questions answered. Subjective POD #1 s/p TURP with Dr. Case Pt doing well this AM, had an uneventful evening. Denies n/v/f/c. Tolerating PO well No new issues or concerns. Review of Systems Review of Systems: All systems reviewed & are unremarkable except as noted in HPI & below Physical Exam Physical Exam: A&Ox3 Resp rate regular abd soft nontender 3way catheter intact, draining clear yellow with moderate CBI Results & Data Vital Signs (Past 12 Hours) Vital Signs Temp Pulse Resp BP BP Pulse Ox 07/29/19 06:56 36.7 C 59 L 19 118/60 95 07/29/19 02:40 36.7 C 60 16 120/61 96 07/28/19 23:00 36.5 C 62 16 123/64 97 PG Care Time/CCT Total # of Minutes Spent Total Time Spent with Patient: Total time spent is greater than 50% in coordination of care (as documented) at patient's floor/unit and/or counseling patient:
--- NOTE | 2019-07-29 10:24 | CT Scan Report ---
CT abd pelvis IV con only CT DOSE: 741.27 mGy.cm HISTORY: PSA increase grossly elevated PSA TECHNIQUE: Multiaxial CT images of the abdomen and pelvis were performed following the use of intrave nous contrast. A dose lowering technique was utilized adhering to the principles of ALARA. COMPARISON STUDY: None. FINDINGS: The lung bases are clear. The liver, spleen, gallbladder, pancreas, kidneys, and adrenal gl ands are within normal limits. No bowel wall thickening or obstruction. The pelvic organs are unremar kable. Prominent renal pelves bilaterally. 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 Several s mall mesenteric nodes measuring up to 8 mm. Borrego catheter is present within the bladder. There is no significant pelvic or inguinal latoya change. Scattered blastic changes throughout the axial and appendicular skeleton. Small focus of the inferior left pubic ring image 428. Additional small focus inferior left pubic ring image 420. Sclerotic focu s posterior left acetabulum. Sclerotic focus mid left sacrum, medial aspect right iliac wing,, with s uperimposed degenerative changes of the major bony structures. IMPRESSION: 1. Metastatic bony change as described. 2. Nonspecific mesenteric adenopathy. 3. No evidence for bulky adenopathy at the current time The above report was generated using voice recognition software. It may contain grammatical, syntax or spelling errors. Electronically signed by: Stewart Nelson M.D. 07/29/2019 10:23 AM
[2019-07-29] MEDS ORDERED: CIPROFLOXACIN 500MG HOME PACK PO ONE (13:16)
[2019-07-29 15:14] VITALS: BP 146/74; PULSE 61; TEMP 97.7; O2SAT 61
[2019-07-29] MEDS ORDERED: SILODOSIN 8 MG PO SCH ×2 (16:30→21:00)
--- NOTE | 2019-08-01 12:03 | Discharge Summary ---
Date of Service August 01, 2019 Admission HPI Per Admitting Provider See H&P Admission Exam Per Admitting Provider See H&P Principal Diagnosis Bladder outlet obstruction Discharge Data Allergies Allergy/AdvReac Type Severity Reaction Status Date / Time minocycline Allergy Severe leg rash Verified 07/28/19 08:31 ketorolac [From Toradol] AdvReac Mild N/V Verified 07/28/19 08:31 Procedures Performed Operation Date: 07/28/19 09:40 Actual Procedures p Transurethral Resection of Prostate(Not Applicable) - William Case, DO Ordered Studies 07/29/19 06:00 CT abd pelvis IV con only Routine Hospital Course (1) Urinary retention with incomplete bladder emptyinyo M POD #1 s/p TURP with Dr. Case, grossly elevated PSA. CT abd pelvis complete, results to be reviewed at outpatient followup. Pt progressing as anticipated CBI clamped at 9AM, okay to d/c and plug irrigation port around noon if continues to drain light pink/valdez urine. Light hematuria expected on and off. Clinical course and discharge instructions reviewed. All questions answered. Total Time Total Time Spent Total Time Spent (In Minutes): 10 Mins Total Time Includes: Examination of the Patient, Discharge Planning, Medication Reconciliation and Communication With Other Providers Discharge Plan Discharge Items Patient Disposition: Home - Home Health Services Reason For Visit: Enlarged Prostate with Urinary Obstruction Discharge Diagnosis: Same Condition on Discharge: Good Activity: Resume your previous activity Sexual Activity: Wait until after follow-up appointment Exercise/Sports: Wait until after follow-up appointment Driving/Machine Use: Resume 1 day after discharge Non-emergency contact: Urologist Call non-emergency contact if: your pain is worsening and your temperature is above 101.5 Follow-up/Referrals: Maria Elena Peralta CRNP [Nurse Practitioner] - 08/18/19 9:10 am Jon Basurto D.O. [Primary Care Provider] - [facility],Nurse [Physician] - 08/04/19 2:40 pm (gann catheter removal) Diet: Regular Addtl Attending Provider Instructions: Please take all medications as prescribed and keep all follow-ups as scheduled. Please call our office at [phone] with any questions, concerns or need to reschedule appointments for any reason. We are happy to assist you. Tips for your recovery at home: Dont be alarmed by brownish or reddish blood or clots in your urine. This is a result of the procedure. This may occur off and on for weeks to months after the procedure but should continue to improve. Drink plenty of fluids during the day (enough to keep your urine very light colored). This will help keep a healthy flow of urine. Do not lift >25 lbs until your followup Avoid constipation. Please use a stool softener (Colace) for the first two weeks after your procedure Be sure to finish the antibiotics as prescribed. If you go home with a catheter, please wash tubing where it enters your body twice daily with mild soap (Dove or Dial). Once your catheter is removed, expect some blood in your urine and some burning when you urinate. You should have an appointment to have this removed, if you do not please call our office to arrange. When to call [facility] at [phone]: Your urine contains heavy blood clots You are constantly leaking urine Fever of 101F or higher, chills, nausea, or vomiting Your pain is not relieved with medication Pending Studies at Discharge: No Stand-Alone Forms: [facility], Smoking Cessation Medications and DC Order Prescriptions: New docusate sodium [Colace] 100 mg capsule 100 mg PO BID Qty: 60 RF: 0 tramadol 50 mg tablet 50 mg PO TID PRN (Reason: pain) Qty: 10 RF: 0 Continued finasteride [Proscar] 5 mg tablet 5 mg PO QAM Qty: 30 RF: 2 ciprofloxacin HCl 500 mg tablet 500 mg PO BID 10 Days Qty: 20 RF: 0 silodosin [Rapaflo] 8 mg capsule 8 mg PO QPM RF: 0 cholecalciferol (vitamin D3) [Vitamin D3] 1,000 unit Capsule 1,000 unit PO QAM RF: 0 PreserVision AREDS-2 [id number] Capsule 1 tab PO AMHS RF: 0 Discharge Orders: Discharge Order (Routine); Ordered 07/29/19 Ordered By: Maria Elena Apodaca/Other Patient Handouts: Catheter Bag Urinary Empty Clean, Catheter Indwelling Urinary Dc, Leg Bag Care Dc Admission Data Admit Date/Time: 07/28/19 11:40 Attending Provider: William Case Admit Provider: William Case Primary Care Provider: Jon Basurto Other Providers: [facility] Other Interventions: Discharge Summary Assessment (RN) Last Done: 07/29/19 11:16 DC Date/Time DO NOT enter until pt leaves facility: 07/29/19 15:40
== END 2019-07-29 15:40 | disposition home health service (06) ==
LOC: ASU 07:36 → 3W 07:36